=== PATIENT | male | born 1995 | race Two or more races ===

== ENCOUNTER 2020-01-06 04:09 | Emergency (ER) | payer OTHER ==
[~2020-01-06] VITALS: Ht 167.6 cm; Wt 68.0 kg
[2020-01-06] MEDS ORDERED: ADDERALL (04:19)
[2020-01-06] MEDS ORDERED: KETO10TA2 PO (07:32)
[2020-01-06] MEDS ORDERED: ZITHROMAX500 MG PO (07:32)
== END 2020-01-06 07:56 | disposition home or self-care (01) ==
LOC: ER 04:09
DX: J06.9 Acute upper respiratory infection, unspecified (principal); J02.9 Acute pharyngitis, unspecified

== ENCOUNTER 2020-01-28 10:21 | Emergency (ER) | payer OTHER ==
[~2020-01-28] VITALS: Ht 167.6 cm; Wt 67.1 kg
[~2020-01-28 10:21] MED LIST: ADDERALL; KETO10TA2 PO; ZITHROMAX500 MG PO
== END 2020-01-28 14:35 | disposition home or self-care (01) ==
LOC: ER 10:21
DX: B34.9 Viral infection, unspecified (principal); R51.9 Headache, unspecified; Z03.818 Encounter for observation for suspected exposure to other biological agents ruled out